=== PATIENT | male | born 1950 | race Caucasian/White ===

== ENCOUNTER 2023-03-15 21:47 | Outpatient (CLI) | payer BC | END 2023-03-15 23:59 | disposition critical access hospital (66) | LOC: EMS 21:47 | DX: S00.93XA Contusion of unspecified part of head, initial encounter (principal); R53.1 Weakness; W01.198A Fall on same level from slipping, tripping and stumbling with subsequent striking against other object, initial encounter; Y93.89 Activity, other specified; Y92.213 High school as the place of occurrence of the external cause; Y99.0 Civilian activity done for income or pay; R00.0 Tachycardia, unspecified | CPT/HCPCS: A0425; A0427 ==

== ENCOUNTER 2023-03-15 21:59 | Emergency (ER) | payer OTHER, BC ==
--- NOTE | 2023-03-15 22:42 | ED Physician Documentation ---
History of Present Illness - Stated complaint Stated Complaint: GLF, HIT HEAD - Chief complaint Chief Complaint: Trauma Hd/Nk - Additonal information Additional information: Patient is 73-year-old male presenting to the emergency department brought in by EMS with report of fall. 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 He reports that he had a difficult time getting up off of the ground, crawled to the corner of the room in order to brace himself against the opposing bryant and struck his head while getting up. He denies blood thinners or loss of consciousness. He reports that he frequently has difficulty getting up and that ordinarily at home he uses a cane or a walker but he does not do this while he is at work. He denies any headache, blurred vision, chest pain, shortness of breath, abdominal pain, nausea, vomiting. Denies drugs or illicit substances. Is currently requesting discharge from the emergency department stating "I feel fine and I do not need to be here". Review of Systems Constitutional: denies: Fever Eyes: denies: Loss of vision Ears: denies: Loss of hearing Nose: denies: Rhinorrhea / runny nose Throat: denies: Dental pain / toothache Cardiac: denies: Chest pain / pressure Respiratory: denies: Dyspnea GI: denies: Abdominal Pain, Vomiting : denies: Dysuria Skin: denies: Rash Musculoskeletal: denies: Neck pain Neurologic: denies: Generalized weakness PD PAST MEDICAL HISTORY - Allergies Allergies/Adverse Reactions: Allergies Allergy/AdvReac Type Severity Reaction Status Date / Time No Known Drug Allergies Allergy Verified 03/15/23 22:13 PD ED PE NORMAL - Vitals Vital signs reviewed: Yes (Tachycardia) - General General: Alert and oriented X 3, No acute distress, Well developed/nourished - HEENT HEENT: Other (Superficial abrasion over the right scalp) - Neck Neck: Supple, no meningeal sign, No bony TTP, No adenopathy, Thyroid normal, No JVD, No bruit, C-Spine cleared by NEXUS criteria - Cardiac Cardiac: RRR, No murmur - Respiratory Respiratory: No respiratory distress - Abdomen Abdomen: Normal bowel sounds, Non tender - Male Male : Deferred - Rectal Rectal: Deferred - Back Back: No CVA TTP, No spinal TTP - Derm Derm: Normal color - Neuro Neuro: Alert and oriented X 3, 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 This occurred earlier this evening while he was at work. He reported an episode in which she found it difficult to get up off the ground while cleaning the high school music room. States that he struck his head well standing up but denies any use of blood thinners or loss of consciousness. Notably was tachycardic on arrival to the emergency department. This appeared to be sinus tachycardia per telemetry. He denied any chest pain or shortness of breath. When I mention his tachycardia he attributed this to "I get nervous around doctors and hospitals". We discussed all findings and he was offered a comprehensive work-up in the emergency department including advanced imaging of his head in order to rule out intracranial injury however he declined this requesting discharge stating that he felt fine and that he did not intend to come to the emergency department but that he felt socially pressured to do so because there were great many people present when his coworker called 911. We discussed the possibility of missed or delayed diagnosis as well as the c oncerning factor of an abnormal vital sign and he verbalized understanding of these potential risks. He did demonstrate decisional capacity while in the emergency department. Discharge for follow-up with primary care with return precautions given. Departure - Departure Disposition: 01 Home, Self Care Clinical Impression: Tachycardia Fall Qualifiers: Encounter type: initial encounter Qualified Code(s): W19.XXXA - Unspecified fall, initial encounter Scalp abrasion Qualifiers: Encounter type: initial encounter Qualified Code(s): S00.01XA - Abrasion of scalp, initial encounter Instructions: ED Head Injury Closed Comments: Thank you for allowing us the opportunity to care for you today at [facility]. Today in the emergency department you are offered a thorough and comprehensive evaluation for any possible life-threatening medical emergency. Today you declined further testing. I do recommend regular use of a topical antibiotic ointment to the abrasion of your scalp. Please drink plenty fluids and get plenty of rest. Please follow-up with your primary care doctor soon as possible. If anytime you develop any new or worsening symptoms please not hesitate to return. Forms: PCP List
[2023-03-15 23:39] VITALS: BP 107/56; O2SAT 100
== END 2023-03-15 23:18 | disposition home or self-care (01) ==
LOC: EDUNIT# → ED 21:59
DX: S00.01XA Abrasion of scalp, initial encounter (principal); W18.39XA Other fall on same level, initial encounter; Y93.H3 Activity, building and construction; Y92.213 High school as the place of occurrence of the external cause; Y99.0 Civilian activity done for income or pay; R00.0 Tachycardia, unspecified
CPT/HCPCS: 1040M; 99283; 99284